=== PATIENT | male | born 1955 | race Caucasian/White ===

== ENCOUNTER 2020-05-09 07:24 | Day surgery (SDC) | payer OTHER ==
[2020-05-09] MEDS ORDERED: Midazolam 1 MG/ML 2 ML SDV ONE (07:51)
[2020-05-09] MEDS ORDERED: Propofol 200 MG/20 ML SDV ONE (07:51)
[2020-05-09] MEDS ORDERED: fentaNYL 100 MCG/2 ML SDV ONE (07:51)
[2020-05-09] MEDS ORDERED: Sodium Chloride 0.9% 1,000 ML IV SCH (08:30)
[2020-05-09 10:55] VITALS: BP 138/91; PULSE 74
--- NOTE | 2020-05-09 12:11 | CRLCT ---
INDICATION: Pain. Possible hiatal hernia. COMPARISON: None TECHNIQUE: CT examination of the abdomen and pelvis was performed without intravenous contrast. Thin section axial images were obtained from the lung bases through the pubic symphysis. Oral contrast was not administered. Please note that all CT scans at this facility use dose modulation, iterative reconstruction, and/or weight-based dosing when appropriate to reduce radiation dose to as low as reasonably achievable. FINDINGS: LUNG BASES: The lung bases as visualized appear normal.Heart size normal. The lung bases. Moderate-sized hiatal hernia. LIVER/BILIARY SYSTEM:The liver is normal in size and configuration given the lack of intravenous contrast. There is no visible focal mass and there is no intra- or extra hepatic biliary ductal dilatation.The gall bladder appears normal. ADRENALS: Normal non-contrast appearance KIDNEYS, URETERS and BLADDER:Tiny intrarenal calculus on the right measuring about 2 millimeters. No evidence of current or recent obstructive uropathy. Peripelvic sinus synthetic cysts on the left incidentally noted. The bladder is distended. The prostate is moderately prominent. SPLEEN:Normal non-contrast appearance. PANCREAS: Normal non-contrast appearance. RETROPERITONEUM and MESENTERY: There is no mass, adenopathy or aortic aneurysm. Atherosclerotic vascular calcifications GASTROINTESTINAL SYSTEM: There is no evidence of diverticulitis, colitis, mechanical obstruction, or appendicitis. The small bowel as visualized appears normal.Fecal retention. Diverticulosis. PELVIS: No free fluid or adenopathy.. OSSEOUS STRUCTURES and ABDOMINAL WALL: Demineralization and degenerative change. Incidental osseous hemangiomas in several vertebral bodies. No significant abdominal wall defect. OTHER: No free fluid or free air. IMPRESSION: 1. There is a moderate-sized hiatal hernia. 2. There is right-sided nephrolithiasis but there is no evidence of current or recent obstructive uropathy on either side. 3. Fecal retention. Diverticulosis. No diverticulitis, colitis or mechanical obstruction. 4. Other incidental nonacute appearing findings as discussed above Please note that all CT scans at this facility use dose modulation, iterative reconstruction, and/or weight-based dosing when appropriate to reduce radiation dose to as low as reasonably achievable. Dictated by Sage Mejía MD @ May 09 2020 12:04PM Signed by Dr. Sage Mejía @ May 09 2020 12:10PM
--- NOTE | 2020-05-09 12:45 | OR ---
DATE OF PROCEDURE: 05/09/2020 SURGEON: Singh Collazo MD PROCEDURE: Esophagogastroduodenoscopy. FINDINGS: 1. Mild inflammation of the GE junction (biopsied using cold biopsy forceps). 2. Approximately 4 cm sliding hernia. COMPLICATIONS: None. PARTS ADMINISTRATOR: None. ANESTHESIA: MAC. PREOPERATIVE DIAGNOSES: Epigastric pain, dysphagia. POSTOPERATIVE DIAGNOSES: Epigastric pain, dysphagia. RISKS: Risks, benefits, alternatives, and limitations including, but limited to infection, bleeding, perforation were explained to proceed who wished to proceed. PROCEDURE IN DETAIL: The patient was placed in the left lateral decubitus position. EGD scope was introduced and advanced atraumatically to the second part of the duodenum. No evidence of duodenitis or ulceration. No old or new blood. Within the stomach itself, there was no gastritis or ulcers. The GE junction showed some mild inflammation concerning for reflux disease. This was biopsied in all 4 quadrants using cold biopsy forceps. The patient had what appeared to be approximately 4 cm hiatal hernia. The remainder of the esophagus was inspected. The patient tolerated the procedure well. Singh Collazo MD /[id number]
== END 2020-05-09 11:55 | disposition home or self-care (01) ==
LOC: JP.SDS 07:24
PROVIDERS: ATTEND Surgery
DX: R10.13 Epigastric pain (principal); K44.9 Diaphragmatic hernia without obstruction or gangrene; I10 Essential (primary) hypertension
CPT/HCPCS: 74176; 88305; J2250; J2704; J3010; J7030

== ENCOUNTER 2021-05-16 07:56 | Day surgery (SDC) | payer OTHER, MEDICARE ==
[~2021-05-16 07:56] MED LIST: Midazolam 1 MG/ML 2 ML SDV ONE; Propofol 200 MG/20 ML SDV ONE; fentaNYL 100 MCG/2 ML SDV ONE
[2021-05-16] MEDS ORDERED: Sodium Chloride 0.9% 1,000 ML IV SCH (08:30)
[2021-05-16 10:28] VITALS: PULSE 63
[2021-05-16] MEDS ORDERED: Propofol 200 MG/20 ML SDV ONE (10:30)
[2021-05-16 10:37] VITALS: BP 124/84
--- NOTE | 2021-05-16 10:40 | OR ---
DATE OF PROCEDURE: 05/16/2021 SURGEON: Singh Collazo MD PROCEDURE: Colonoscopy. FINDINGS: Normal colonoscopy. PREOPERATIVE DIAGNOSIS: Screening colonoscopy. POSTOPERATIVE DIAGNOSIS: Screening colonoscopy. RISKS: Risks, benefits, alternatives, and limitations including, but not limited to infection, bleeding, perforation, false positives, false negatives were explained to the patient who wished to proceed. PROCEDURE IN DETAIL: The patient was placed in left lateral decubitus position. Digital rectal exam was performed without abnormality. The scope was introduced and advanced atraumatically to ileocecal valve. A photo was taken. Scope was brought back to the ascending, transverse, descending colon, and retroflexed. No evidence of old or new blood. No masses. No polyps. No diverticulosis. No abnormalities on retroflexion. Greater than 8 minutes was spent removing the scope. The patient tolerated the procedure well, 90% of luminal surface could be seen. Singh Collazo MD /[id number]
--- NOTE | 2021-05-20 13:25 | ANES ---
DATE OF SERVICE: 05/16/2021 ADDENDUM: I gave Mr. Stevens a total of 400 mg of propofol for his procedure. Maxime Zuluaga CRNA /[id number]
== END 2021-05-16 10:45 | disposition home or self-care (01) ==
LOC: JP.SDS 07:56
PROVIDERS: ATTEND Surgery
DX: Z12.11 Encounter for screening for malignant neoplasm of colon (principal); I10 Essential (primary) hypertension; E78.5 Hyperlipidemia, unspecified
CPT/HCPCS: 45378; J2250; J2704; J3010; J7030